=== PATIENT | female | born 1995 | race Caucasian/White ===

== ENCOUNTER 2023-07-20 03:30 | Inpatient (IN) | payer OTHER ==
[2023-07-20] MEDS: ELECTROLYTE-148 SOLN 1,000 ML IV SCH (04:00)
[2023-07-20 04:40] VITALS: BMI 37.3
[2023-07-20 05:34] LABS: BASO % 0.8 % (0-2.0); EOS % 1.8 % (0-4.5); HEMOGLOBIN 12.1 GM/dL (10.7-15.3); LYMPH % 30.9 % (8-40); MCH 33.2 pg (25.7-33.7); MCHC 33.6 g/dl (32.0-36.0); MEAN CELL VOLUME 98.6 fl (80-96); MEAN PLT VOLUME 10.8 fl (7.5-11.1); NEUT % 59.5 % (42.8-82.8); PLATELET COUNT 170 10^3/uL (134-434); RBC 3.65 M/mm3 (3.60-5.2); RDW 15.6 % (11.6-15.6); WHITE BLOOD COUNT 9.4 K/mm3 (4.0-10.0)
[2023-07-20 05:42] LABS: INR 0.9 (0.83-1.09); PROTHROMBIN TIME (PATIENT) 10.4 SEC (9.7-13.0)
[2023-07-20 05:45] LABS: ACTIVATED PTT 27.6 SECONDS (25.2-36.5)
[2023-07-20 05:50] LABS: CALCIUM 8.7 mg/dL (8.5-10.1)
[2023-07-20 05:51] LABS: BLOOD UREA NITROGEN 9.5 mg/dL (7-18)
[2023-07-20 05:54] LABS: CREATININE 0.5 mg/dL (0.55-1.3)
[2023-07-20 09:29] LABS: POC NITRAZINE POS
[2023-07-20] MEDS ORDERED: OXYTOCIN 30 UNITS in 0.9% NS 30 UNIT/500 ML INFUS.BAG IVPB ONE (09:57)
[2023-07-20] MEDS: OXYTOCIN 30 UNITS in 0.9% NS 30 UNIT/500 ML INFUS.BAG IVPB SCH (10:06)
[2023-07-20] MEDS ORDERED: BUTORPHANOL TARTRATE 2 MG/ML VIAL ONE ×2 (14:47→18:21)
[2023-07-20] MEDS ORDERED: PROMETHAZINE HCL 25 MG/1 ML VIAL ONE ×2 (14:47→18:21)
[2023-07-20] MEDS: BUTORPHANOL TARTRATE 1 MG/ML VIAL IVPB ONE (14:55)
[2023-07-20] MEDS: BUTORPHANOL TARTRATE 2 MG/ML VIAL IVPB ONE ×2 (14:55→18:30)
[2023-07-20] MEDS: PROMETHAZINE HCL 25 MG/1 ML VIAL IVPB ONE ×2 (14:55→18:30)
[2023-07-20] MEDS ORDERED: AZITHROMYCIN IVPB 500 MG/250 ML BAG IVPB ONE (21:02)
[2023-07-20] MEDS: CITRIC ACID/SODIUM CITRATE 30 ML UNIT-DOSE CUP PO ONE (21:05)
[2023-07-20] MEDS: AZITHROMYCIN IVPB 500 MG/250 ML BAG IVPB STA (21:10)
[2023-07-20] MEDS ORDERED: ONDANSETRON 4 MG/2 ML VIAL IVPUSH PRN (21:46)
[2023-07-20] MEDS ORDERED: morphine SULFATE/PF 1 MG/2 ML (2cc Syringe - QUVA) ONE (21:52)
[2023-07-21] MEDS ORDERED: OXYTOCIN 20 UNITS in 0.9% NS 20 UNIT/1,000 ML INFUS.BAG IV ONE (00:20)
[2023-07-21] MEDS: CEFAZOLIN SODIUM 2 GM in DEXTROSE 5%-WATER 100 ML IVPB ONE (00:41)
[2023-07-21] MEDS: OXYTOCIN 20 UNITS in 0.9% NS 20 UNIT/1,000 ML INFUS.BAG IV SCH (00:45)
[2023-07-21] MEDS: METHYLERGONOVINE MALEATE 0.2 MG TABLET (FP) PO SCH (01:58)
[2023-07-21] MEDS: IBUPROFEN 800 MG/8 ML IJ IVPB PRN (01:58)
[2023-07-21 08:48] LABS: BASO % 0.4 % (0-2.0); EOS % 0.4 % (0-4.5); HEMATOCRIT 29.4 % (32.4-45.2); LYMPH % 22.6 % (8-40); MCH 33.4 pg (25.7-33.7); MEAN CELL VOLUME 98.2 fl (80-96); MEAN PLT VOLUME 10.3 fl (7.5-11.1); MONO % 6.8 % (3.8-10.2); NEUT % 69.8 % (42.8-82.8); PLATELET COUNT 160 10^3/uL (134-434); RBC 2.99 M/mm3 (3.60-5.2); RDW 15.4 % (11.6-15.6); WHITE BLOOD COUNT 10.9 K/mm3 (4.0-10.0)
[2023-07-21] MEDS: DIPHTH,PERTUSS(ACELL),TET 0.5 ML DISP.SYRIN IM ONE (10:59)
[2023-07-21 18:50] VITALS: RESP 18
[2023-07-21] MEDS: ACETAMINOPHEN 325 MG TABLET (FP) PO PRN (20:29)
[2023-07-21] MEDS: SIMETHICONE 80 MG TAB.CHEW (FP) PO PRN (20:29)
[2023-07-21] MEDS ORDERED: BISACODYL 10 MG SUPP.RECT RC PRN (21:05)
[2023-07-21] MEDS: oxyCODONE HCL 5 MG TABLET PO PRN (21:35)
[2023-07-22] MEDS: IBUPROFEN 600 MG TABLET (FP) PO PRN (10:38)
[2023-07-22] MEDS: FERROUS GLUCONATE 324 MG TAB (FP) PO SCH (11:46)
[2023-07-22] MEDS: DOCUSATE SODIUM 100 MG CAPSULE (FP) PO PRN (23:09)
[2023-07-23 08:27] LABS: BASO % 0.3 % (0-2.0); EOS % 2.7 % (0-4.5); LYMPH % 20.7 % (8-40); MCH 33.2 pg (25.7-33.7); MCHC 33.5 g/dl (32.0-36.0); MEAN CELL VOLUME 99.2 fl (80-96); MEAN PLT VOLUME 9.3 fl (7.5-11.1); MONO % 4.5 % (3.8-10.2); NEUT % 71.8 % (42.8-82.8); PLATELET COUNT 219 10^3/uL (134-434); RBC 2.73 M/mm3 (3.60-5.2); RDW 15.5 % (11.6-15.6)
[2023-07-23 10:27] VITALS: BP 110/65; PULSE 81; TEMP 97.8
== END 2023-07-23 12:20 | disposition home or self-care (01) | DRG 540 ==
LOC: JLDR 03:30 → J3W 07-21 01:30
PROVIDERS: ADMIT Obstetrics & Gynecology; ATTEND Student in an Organized Health Care Education/Training Program
PROC: 10D00Z1 Extraction of Products of Conception, Low, Open Approach (ICD-10-PCS; principal; 2023-07-20)
DX: O61.0 Failed medical induction of labor (principal); O24.425 Gestational diabetes mellitus in childbirth, controlled by oral hypoglycemic drugs; O42.90 Premature rupture of membranes, unspecified as to length of time between rupture and onset of labor, unspecified weeks of gestation; Z3A.40 40 weeks gestation of pregnancy; Z37.0 Single live birth
CPT/HCPCS: 36415; 71045-TC-FY; 80048; 82962; 83986-QW; 85025; 85610; 85730; 86780; 86850; 86900; 86901; 90715